=== PATIENT | male | born 1970 | race African-American/Black ===

== ENCOUNTER 2025-06-14 18:12 | Inpatient (IN) | payer OTHER ==
[~2025-06-14] VITALS: Ht 170.2 cm; Wt 106.6 kg
[2025-06-14 18:28] VITALS: O2SAT 98
[2025-06-14 19:24] LABS: BASOPHILS % 0.7 % (0.0-2.0); EOSINOPHILS % 1.1 % (0.0-5.0); HEMATOCRIT. 40.0 % (42.0-52.0); HEMOGLOBIN. 12.8 g/dL (14.0-18.0); LYMPHOCYTES % 17.0 % (20.0-50.0); MEAN PLATELET VOLUME 8.0 fl (7.4-10.4); MONOCYTES % 11.2 % (2.0-8.0); NEUTROPHILS % 70.0 % (40.0-76.0); PLATELET 276 x1000/uL (130-400); RED BLOOD CELL COUNT 4.78 mill/uL (4.7-6.1); RED CELL DISTRIBUTION WIDTH 16.5 % (11.6-14.6)
[2025-06-14 19:36] LABS: INR 0.9
[2025-06-14 19:40] LABS: CREATININE 1.1 mg/dL (0.6-1.3); UREA NITROGEN BLOOD 13 mg/dL (9-23)
[2025-06-14 19:41] LABS: TROPONIN I HIGH SENSITIVITY 7 ng/L (3.0-53)
[2025-06-14 19:42] LABS: ASPARTATE AMINOTRANSFERASE 20 IU/L (<34); BILIRUBIN DIRECT < 0.1 mg/dL (<=3.0); BILIRUBIN TOTAL 0.3 mg/dL (0.1-1.0); PROTEIN TOTAL 7.1 g/dL (6.0-8.3)
[2025-06-14 22:30] LABS: TROPONIN I HIGH SENSITIVITY 6 ng/L (3.0-53)
[2025-06-15 01:00] VITALS: BP 147/103; PULSE 90; RESP 18; TEMP 36.3624
[2025-06-15 04:00] VITALS: BP 153/113; PULSE 89; RESP 19; TEMP 36.5; O2SAT 100
[2025-06-15] MEDS: HYDROCODONE/ACETAMINOPHEN 10/325MG TABLET PO PRN (05:00)
[2025-06-15] MEDS: METOPROLOL TARTRATE 50MG TABLET PO SCH (05:00)
[2025-06-15 08:00] VITALS: BP 157/113; PULSE 80; RESP 16; TEMP 36.4; O2SAT 97
[2025-06-15] MEDS: ASPIRIN 81MG TABLET PO SCH (10:03)
[2025-06-15 12:00] VITALS: BP 153/121; PULSE 73; PULSE 83; RESP 15; TEMP 36.4; O2SAT 96
[2025-06-15] MEDS ORDERED: NALOXONE HCL 0.4MG/ML VIAL IV PRN (13:00)
[2025-06-15 14:21] LABS: BASOPHILS % 0.4 % (0.0-2.0); EOSINOPHILS % 1.9 % (0.0-5.0); HEMATOCRIT. 42.4 % (42.0-52.0); HEMOGLOBIN. 13.4 g/dL (14.0-18.0); LYMPHOCYTES % 27.1 % (20.0-50.0); MEAN PLATELET VOLUME 8.1 fl (7.4-10.4); MONOCYTES % 14.0 % (2.0-8.0); NEUTROPHILS % 56.6 % (40.0-76.0); PLATELET 284 x1000/uL (130-400); RED BLOOD CELL COUNT 5.13 mill/uL (4.7-6.1); RED CELL DISTRIBUTION WIDTH 16.1 % (11.6-14.6)
[2025-06-15 14:52] LABS: CREATININE 1.0 mg/dL (0.6-1.3); TRIGLYCERIDE 162 mg/dL (0-150); UREA NITROGEN BLOOD 10 mg/dL (9-23)
[2025-06-15 14:53] LABS: LDL CHOLESTEROL 160 mg/dL (5-100)
[2025-06-15] MEDS: AMLODIPINE 10MG TABLET PO SCH (15:16)
[2025-06-15 16:00] VITALS: BP 147/121; PULSE 80; RESP 16; TEMP 36.4; O2SAT 99
[2025-06-15 20:00] VITALS: BP 149/103; PULSE 89; RESP 21; TEMP 36.4; O2SAT 94
[2025-06-15 20:55] LABS: *AMPHETAMINES SCREEN URINE NEGATIVE (NEGATIVE)
[2025-06-15 20:57] LABS: *BARBITURATES SCREEN URINE NEGATIVE (NEGATIVE); *BENZODIAZEPINES SCREEN URINE NEGATIVE (NEGATIVE); *COCAINE SCREEN URINE NEGATIVE (NEGATIVE); CANNABINOID URINE SCREEN PRESUMPTIVE POSITIVE (NEGATIVE); ECSTASY MDMA SCREEN URINE NEGATIVE (NEGATIVE); METHADONE URINE SCREEN NEGATIVE (NEGATIVE); OPIATES URINE SCREEN PRESUMPTIVE POSITIVE (NEGATIVE); PHENCYCLIDINE URINE SCREEN NEGATIVE (NEGATIVE)
[2025-06-15] MEDS: ATORVASTATIN CALCIUM 40MG TABLET PO SCH (21:37)
[2025-06-16] VITALS: BP 162/114; PULSE 79; RESP 20; TEMP 36.2; O2SAT 96
[2025-06-16 04:00] VITALS: BP 163/115; PULSE 82; RESP 19; TEMP 36.2; O2SAT 96
[2025-06-16 08:00] VITALS: BP 145/109; PULSE 87; RESP 18; TEMP 36.2; O2SAT 95
[2025-06-16 09:14] VITALS: BP 145/109
== END 2025-06-16 09:20 | disposition left against medical advice (07) | DRG 203 ==
LOC: ER 18:12 → 6WST 21:04 → EDBEDREQ 23:05 → EDBEDREQTM 23:05 → ENRESERV 06-15 00:06
PROVIDERS: ADMIT Internal Medicine; ATTEND Internal Medicine
DX: R07.89 Other chest pain (principal); I16.0 Hypertensive urgency; E66.9 Obesity, unspecified; I11.9 Hypertensive heart disease without heart failure; E78.00 Pure hypercholesterolemia, unspecified; Z53.29 Procedure and treatment not carried out because of patient's decision for other reasons; Z68.36 Body mass index [BMI] 36.0-36.9, adult; Z91.148 Patient's other noncompliance with medication regimen for other reason; Z86.73 Personal history of transient ischemic attack (TIA), and cerebral infarction without residual deficits; Z88.0 Allergy status to penicillin
CPT/HCPCS: 36415; 71045; 80048; 80061; 80076; 80305; 83880; 84484; 85025; 85379; 93005; 99285

== ENCOUNTER 2025-06-16 18:51 | Emergency (ER) | payer OTHER ==
[~2025-06-16] VITALS: Ht 177.8 cm; Wt 113.0 kg
[2025-06-16 18:52] VITALS: O2SAT 96
[2025-06-16] MEDS: SODIUM CHLORIDE 0.9% 500 ML IV ONE (19:42)
[2025-06-16 19:48] LABS: BASOPHILS % 0.8 % (0.0-2.0); EOSINOPHILS % 1.1 % (0.0-5.0); HEMATOCRIT. 41.2 % (42.0-52.0); HEMOGLOBIN. 13.2 g/dL (14.0-18.0); LYMPHOCYTES % 16.0 % (20.0-50.0); MEAN PLATELET VOLUME 8.1 fl (7.4-10.4); MONOCYTES % 13.5 % (2.0-8.0); NEUTROPHILS % 68.6 % (40.0-76.0); PLATELET 277 x1000/uL (130-400); RED BLOOD CELL COUNT 4.98 mill/uL (4.7-6.1); RED CELL DISTRIBUTION WIDTH 16.3 % (11.6-14.6)
[2025-06-16 20:03] LABS: UREA NITROGEN BLOOD 15 mg/dL (9-23)
[2025-06-16 20:04] LABS: ASPARTATE AMINOTRANSFERASE 16 IU/L (<34); TROPONIN I HIGH SENSITIVITY 4 ng/L (3.0-53)
[2025-06-16 20:05] LABS: BILIRUBIN DIRECT < 0.1 mg/dL (<=3.0); BILIRUBIN TOTAL 0.3 mg/dL (0.1-1.0); PROTEIN TOTAL 6.9 g/dL (6.0-8.3)
[2025-06-16 20:21] LABS: CREATININE 2.5 mg/dL (0.6-1.3)
[2025-06-16] MEDS: IOHEXOL-350 100 ML BOTTLE ONE (21:26)
[2025-06-16 21:57] LABS: TROPONIN I HIGH SENSITIVITY < 4 ng/L (3.0-53)
[2025-06-17 01:10] VITALS: BP 120/74; PULSE 89; RESP 21; TEMP 36.7; O2SAT 96
== END 2025-06-17 01:44 | disposition short-term general hospital (02) ==
LOC: ER 18:51 → CMPBEDREQ 06-17 08:01
DX: R07.9 Chest pain, unspecified (principal); I10 Essential (primary) hypertension; R06.02 Shortness of breath; Z86.73 Personal history of transient ischemic attack (TIA), and cerebral infarction without residual deficits; Z88.0 Allergy status to penicillin
CPT/HCPCS: 80076; 80048; 83880; 83690; 85025; 84484; 36415; 71045; 71275; 93005; 96360; 99285; Q9967; J7040; Z7610

== ENCOUNTER 2025-06-21 17:36 | Emergency (ER) | payer OTHER ==
[~2025-06-21] VITALS: Ht 175.3 cm; Wt 100.0 kg
[2025-06-21 17:38] VITALS: O2SAT 97
[2025-06-21 20:34] LABS: HEMATOCRIT. 39.7 % (42.0-52.0); HEMOGLOBIN. 12.8 g/dL (14.0-18.0); MEAN PLATELET VOLUME 8.1 fl (7.4-10.4); PLATELET 253 x1000/uL (130-400); RED BLOOD CELL COUNT 4.79 mill/uL (4.7-6.1); RED CELL DISTRIBUTION WIDTH 16.0 % (11.6-14.6)
[2025-06-21 20:49] LABS: INR 1.0
[2025-06-21 20:51] LABS: EOSINOPHILS % MANUAL 3.0 % (0.0-5.0); LYMPHOCYTES % MANUAL 23.0 % (20.0-50.0); MONOCYTES % MANUAL 14.0 % (2.0-8.0); NEUTROPHILS % MANUAL 60.0 % (45.0-75.0); PLATELET ESTIMATE NORMAL
[2025-06-21 20:52] LABS: CREATININE 1.2 mg/dL (0.6-1.3)
[2025-06-21 20:53] LABS: UREA NITROGEN BLOOD 11 mg/dL (9-23)
[2025-06-21 20:54] LABS: ASPARTATE AMINOTRANSFERASE 17 IU/L (<34); BILIRUBIN DIRECT 0.1 mg/dL (<=3.0)
[2025-06-21 20:55] LABS: BILIRUBIN TOTAL 0.5 mg/dL (0.1-1.0); PROTEIN TOTAL 7.1 g/dL (6.0-8.3); TROPONIN I HIGH SENSITIVITY 7 ng/L (3.0-53)
[2025-06-21] MEDS ORDERED: IBUP-1455 MT (21:21)
[2025-06-21] MEDS ORDERED: ALBU18HF2 IH (21:21)
[2025-06-21] MEDS ORDERED: AZIT500T8 MT (21:21)
[2025-06-21] MEDS ORDERED: CEL200 MT (22:05)
[2025-06-21] MEDS ORDERED: TUSSL MT (22:06)
[2025-06-21 22:20] VITALS: BP 124/69; PULSE 97; RESP 16; TEMP 36.8; O2SAT 98
== END 2025-06-21 22:21 | disposition home or self-care (01) ==
LOC: ER 17:36
DX: J20.9 Acute bronchitis, unspecified (principal); E78.00 Pure hypercholesterolemia, unspecified; I10 Essential (primary) hypertension; R06.02 Shortness of breath; J45.909 Unspecified asthma, uncomplicated; Z86.73 Personal history of transient ischemic attack (TIA), and cerebral infarction without residual deficits; Z87.891 Personal history of nicotine dependence; Z88.0 Allergy status to penicillin
CPT/HCPCS: 36415; 71045; 80048; 80076; 83735; 83880; 84484; 85025; 85379; 93005; 99285